=== PATIENT | male | born 1970 | race African-American/Black ===

== ENCOUNTER 2017-01-16 12:32 | Outpatient (CLI) | payer OTHER ==
[~2017-01-16] VITALS: Ht 185.4 cm; Wt 108.9 kg
[2017-01-16] MEDS ORDERED: GADOBUTROL 7.5 MMOL/7.5 ML VIAL INT ART ONE (13:15)
[2017-01-16] MEDS ORDERED: IOHEXOL 300 MG/ML 10ML VIAL. IART ONE (13:15)
[2017-01-16 13:47] VITALS: BP 150/84
[2017-01-16] MEDS ORDERED: MIDAZOLAM HCL/PF 2 MG/2 ML VIAL. ONE ×2 (15:10)
[2017-01-16] MEDS ORDERED: PROPOFOL 0 ML IV ONE ×4 (15:11)
[2017-01-16] MEDS ORDERED: PROPOFOL 20 ML IV ONE (15:11)
--- NOTE | 2017-01-16 15:59 | RAD ---
Left shoulder arthrogram Indication: Pain Technique: Fluoroscopy guided left shoulder arthrogram. Informed consent was obtained expending risks and benefits of the procedure. Appropriate site was chosen over the left shoulder. The entry site was prepared and draped in usual sterile fashion. 1% lidocaine was used for local anesthesia. 22-gauge spinal needle was advanced into the joint space. The position of the needle was confirmed with are related contrast. Mixture of 150 mL of saline and 0.7 mL of gadolinium contrast was prepared. 15 cc of this mixture was injected into patient's joint. Comparison: None Findings: Uncomplicated left shoulder arthrogram. Impression: As above.
--- NOTE | 2017-01-16 16:46 | RAD ---
MR arthrogram of the left shoulder Indication: Pain, chronic. Technique: Intra-articular contrast injected into the glenohumeral joint and is reported separately. Patient unable to tolerate Aber positioning. Findings: Moderate motion degradation. Acromioclavicular joint: Mildly degenerative, with mild undersurface osteophytes and mass effect. Rotator cuff: Mild linear signal within the supraspinatus tendon at the anterior footprint, compatible with a small intrasubstance defect. No evidence of undersurface or bursal surface violation. This does not accumulate contrast. Mild partial subscapularis tendon tear. No advanced muscle atrophy. Subdeltoid bursa: No significant contrast accumulation. No significant bursal fluid. Articular cartilage: Mild primary osteoarthritis. Labrum: Signal at the posterior through superior labrum compatible with a tear. Biceps tendon: Intact Bones: No lesion or acute fracture. Soft tissue: No acute findings. Impression: 1. Mild linear signal within the supraspinatus tendon at its footprint attachment. No definite surface tear or rupture however. Mild subscapularis tendon partial tear. 2. Posterior through superior labral tear. 3. Primary osteoarthritis. Electronically signed by: Galdino Montemayor MD (01/16/2017 4:43 PM) [id number]
[2017-01-16 16:58] VITALS: BP 149/85
== END 2017-01-16 17:17 | disposition home or self-care (01) ==
LOC: RAD 12:32
PROVIDERS: ATTEND Family Medicine
DX: S43.432A Superior glenoid labrum lesion of left shoulder, initial encounter (principal); M19.012 Primary osteoarthritis, left shoulder; X58.XXXA Exposure to other specified factors, initial encounter; Y93.89 Activity, other specified; Y92.89 Other specified places as the place of occurrence of the external cause; Y99.8 Other external cause status
CPT/HCPCS: 73040; 73222; A9585; J2250; J2704; Q9967